=== PATIENT | male | born 1940 | race Caucasian/White ===

== ENCOUNTER 2023-08-12 12:46 | Inpatient (IN) | payer OTHER, BC ==
[2023-08-12 14:35] VITALS: BMI 29.5
[2023-08-12] MEDS ORDERED: BENZONATATE 200 MG CAPSULE PO PRN (15:31)
[2023-08-12] MEDS ORDERED: MAGNESIUM HYDROX 2400MG/30ML ORAL SUSPENSION 30 ML CUP PO PRN (15:31)
[2023-08-12] MEDS ORDERED: MAG HYDROX/AL HYDROX/SIMETH 30 ML UNIT-DOSE CUP PO PRN (15:31)
[2023-08-12] MEDS ORDERED: BISMUTH SUBSALICYLATE 524 MG/30 ML PO PRN (15:31)
[2023-08-12] MEDS ORDERED: ONDANSETRON *ODT* 4 MG TABLET SL PRN (15:31)
[2023-08-12] MEDS ORDERED: ACETAMINOPHEN 325 MG TABLET (FP) PO PRN (15:31)
[2023-08-12] MEDS ORDERED: POLYETHYLENE GLYCOL (HEALTHYLAX) 3350 17 GM PACKET PO PRN (15:31)
[2023-08-12] MEDS ORDERED: BENZOCAINE/MENTHOL (CHLORASEPTIC ) LOZENGE MM PRN (15:31)
[2023-08-12] MEDS ORDERED: guaiFENesin 600 MG TABLET.ER (FP) PO PRN (15:31)
[2023-08-12] MEDS ORDERED: LOPERAMIDE HCL 2 MG CAPSULE PO PRN (15:31)
[2023-08-12] MEDS ORDERED: diazePAM 5 MG TABLET ONE (16:11)
[2023-08-12] MEDS: diazePAM 5 MG TABLET PO SCH ×2 (16:14→22:05)
[2023-08-12] MEDS: FUROSEMIDE 20 MG TABLET (FP) PO SCH (16:14)
[2023-08-12] MEDS ORDERED: LISINOPRIL 5 MG TABLET PO ONE (21:00)
[2023-08-12] MEDS: ATORVASTATIN CA 40 MG TABLET (FP) PO SCH (21:35)
[2023-08-12] MEDS: THIAMINE HCL 100 MG TABLET (FP) PO SCH (21:35)
[2023-08-13] MEDS: diazePAM 5 MG TABLET PO SCH ×4 (05:51→22:02)
[2023-08-13 08:52] LABS: CHLORIDE 106 mmol/L (98-107); POTASSIUM 3.5 mmol/L (3.5-5.1); SODIUM 143 mmol/L (136-145)
[2023-08-13 08:53] LABS: HEMATOCRIT 39.1 % (35.4-49); MCH 30.3 pg (25.7-33.7); MCHC 33.1 g/dl (32.0-35.9); MEAN CELL VOLUME 91.3 fl (80-96); MEAN PLT VOLUME 7.4 fl (7.5-11.1); PLATELET COUNT 215 10^3/uL (134-434); RBC 4.28 M/mm3 (4.00-5.60); RDW 14.5 % (11.9-15.9); WHITE BLOOD COUNT 8.8 K/mm3 (4.0-10.0)
[2023-08-13 08:55] LABS: ALBUMIN 3.3 g/dl (3.4-5.0); BLOOD UREA NITROGEN 14.7 mg/dL (7-18); CALCIUM 8.5 mg/dL (8.5-10.1)
[2023-08-13 08:56] LABS: ANION GAP 6 mmol/L (4-13); CO2 32 mmol/L (21-32); GLUCOSE,RANDOM 112 mg/dL (74-106)
[2023-08-13 08:59] LABS: CREATININE 1.1 mg/dL (0.55-1.3); SGOT/AST 14 U/L (15-37); SGPT/ALT 20 U/L (13-61)
[2023-08-13 09:00] LABS: TOT PROT 5.9 g/dl (6.4-8.2)
[2023-08-13 09:01] LABS: BILIRUBIN,TOTAL 0.6 mg/dL (0.2-1)
[2023-08-13 09:02] LABS: ALK PHOS 70 U/L (45-117)
[2023-08-13] MEDS: PRENATAL VITAMINS W/ FOLIC ACID TABLET (FP) PO SCH (10:17)
[2023-08-13] MEDS: FUROSEMIDE 20 MG TABLET (FP) PO SCH (10:18)
[2023-08-13] MEDS: THIAMINE HCL 100 MG TABLET (FP) PO SCH (22:03)
[2023-08-13] MEDS: ATORVASTATIN CA 40 MG TABLET (FP) PO SCH (22:03)
[2023-08-14] MEDS: diazePAM 5 MG TABLET PO SCH ×2 (05:19→17:48)
[2023-08-14] MEDS: FUROSEMIDE 20 MG TABLET (FP) PO SCH (09:25)
[2023-08-14] MEDS: PRENATAL VITAMINS W/ FOLIC ACID TABLET (FP) PO SCH (09:25)
[2023-08-14] MEDS: diazePAM 5 MG TABLET PO PRN ×2 (09:26→21:12)
[2023-08-14] MEDS: IBUPROFEN 400 MG TABLET (FP) PO PRN (13:55)
[2023-08-14] MEDS: cloNIDine HCL 0.1 MG TABLET PO PRN ×2 (13:56→21:12)
[2023-08-14] MEDS: MELATONIN 5 MG TABLETS PO PRN (21:11)
[2023-08-14] MEDS: THIAMINE HCL 100 MG TABLET (FP) PO SCH (21:12)
[2023-08-14] MEDS: ATORVASTATIN CA 40 MG TABLET (FP) PO SCH (21:12)
[2023-08-15] MEDS: diazePAM 5 MG TABLET PO PRN ×4 (02:43→21:09)
[2023-08-15] MEDS ORDERED: diazePAM 5 MG TABLET PO ONE (06:00)
[2023-08-15] MEDS: FUROSEMIDE 20 MG TABLET (FP) PO SCH (10:01)
[2023-08-15] MEDS: PRENATAL VITAMINS W/ FOLIC ACID TABLET (FP) PO SCH (10:01)
[2023-08-15] MEDS: cloNIDine HCL 0.1 MG TABLET PO PRN ×2 (14:04→21:09)
[2023-08-15] MEDS: MELATONIN 5 MG TABLETS PO PRN (21:08)
[2023-08-15] MEDS: ATORVASTATIN CA 40 MG TABLET (FP) PO SCH (21:08)
[2023-08-15] MEDS: THIAMINE HCL 100 MG TABLET (FP) PO SCH (21:09)
[2023-08-16] MEDS: diazePAM 5 MG TABLET PO PRN (01:29)
[2023-08-16] MEDS: cloNIDine HCL 0.1 MG TABLET PO PRN (09:32)
[2023-08-16] MEDS: PRENATAL VITAMINS W/ FOLIC ACID TABLET (FP) PO SCH (09:32)
[2023-08-16] MEDS: FUROSEMIDE 20 MG TABLET (FP) PO SCH (09:33)
[2023-08-16] MEDS: ATORVASTATIN CA 40 MG TABLET (FP) PO SCH (21:12)
[2023-08-16] MEDS: THIAMINE HCL 100 MG TABLET (FP) PO SCH (21:12)
[2023-08-16] MEDS ORDERED: traZODone HCL 50 MG TABLET (FP) PO ONE (22:00)
[2023-08-17] MEDS: PRENATAL VITAMINS W/ FOLIC ACID TABLET (FP) PO SCH (10:01)
[2023-08-17] MEDS: FUROSEMIDE 20 MG TABLET (FP) PO SCH (10:01)
[2023-08-17] MEDS: CHOLECALCIFEROL (VIT D3) 1,000 UNIT (25 MCG) TABLET PO SCH (10:01)
[2023-08-17] MEDS: traZODone HCL 50 MG TABLET (FP) PO SCH (21:44)
[2023-08-17] MEDS: THIAMINE HCL 100 MG TABLET (FP) PO SCH (21:44)
[2023-08-17] MEDS: ATORVASTATIN CA 40 MG TABLET (FP) PO SCH (21:44)
[2023-08-18] MEDS: FUROSEMIDE 20 MG TABLET (FP) PO SCH (09:05)
[2023-08-18] MEDS: CHOLECALCIFEROL (VIT D3) 1,000 UNIT (25 MCG) TABLET PO SCH (09:05)
[2023-08-18] MEDS: PRENATAL VITAMINS W/ FOLIC ACID TABLET (FP) PO SCH (09:05)
[2023-08-18] MEDS: traZODone HCL 50 MG TABLET (FP) PO SCH (21:50)
[2023-08-18] MEDS: ATORVASTATIN CA 40 MG TABLET (FP) PO SCH (21:50)
[2023-08-18] MEDS: THIAMINE HCL 100 MG TABLET (FP) PO SCH (21:50)
[2023-08-19] MEDS: FUROSEMIDE 20 MG TABLET (FP) PO SCH (10:40)
[2023-08-19] MEDS: CHOLECALCIFEROL (VIT D3) 1,000 UNIT (25 MCG) TABLET PO SCH (10:40)
[2023-08-19] MEDS: PRENATAL VITAMINS W/ FOLIC ACID TABLET (FP) PO SCH (10:40)
[2023-08-19] MEDS: MELATONIN 5 MG TABLETS PO PRN (21:11)
[2023-08-19] MEDS: THIAMINE HCL 100 MG TABLET (FP) PO SCH (21:11)
[2023-08-19] MEDS: traZODone HCL 50 MG TABLET (FP) PO SCH (21:12)
[2023-08-19] MEDS: ATORVASTATIN CA 40 MG TABLET (FP) PO SCH (21:12)
[2023-08-20] MEDS: FUROSEMIDE 20 MG TABLET (FP) PO SCH (09:37)
[2023-08-20] MEDS: CHOLECALCIFEROL (VIT D3) 1,000 UNIT (25 MCG) TABLET PO SCH (09:37)
[2023-08-20] MEDS: PRENATAL VITAMINS W/ FOLIC ACID TABLET (FP) PO SCH (09:38)
[2023-08-20] MEDS: ATORVASTATIN CA 40 MG TABLET (FP) PO SCH (21:13)
[2023-08-20] MEDS: THIAMINE HCL 100 MG TABLET (FP) PO SCH (21:13)
[2023-08-20] MEDS: traZODone HCL 50 MG TABLET (FP) PO SCH (21:13)
[2023-08-21] MEDS: FUROSEMIDE 20 MG TABLET (FP) PO SCH (09:53)
[2023-08-21] MEDS: PRENATAL VITAMINS W/ FOLIC ACID TABLET (FP) PO SCH (09:53)
[2023-08-21] MEDS: CHOLECALCIFEROL (VIT D3) 1,000 UNIT (25 MCG) TABLET PO SCH (09:53)
[2023-08-21] MEDS: MELATONIN 5 MG TABLETS PO PRN (21:22)
[2023-08-21] MEDS: traZODone HCL 50 MG TABLET (FP) PO SCH (21:22)
[2023-08-21] MEDS: ATORVASTATIN CA 40 MG TABLET (FP) PO SCH (21:22)
[2023-08-21] MEDS: THIAMINE HCL 100 MG TABLET (FP) PO SCH (21:23)
[2023-08-22] MEDS: P-EPHED 60MG/TRIPROLIDI 2.5MG TABLET PO PRN ×2 (07:48→21:08)
[2023-08-22] MEDS: CHOLECALCIFEROL (VIT D3) 1,000 UNIT (25 MCG) TABLET PO SCH (09:21)
[2023-08-22] MEDS: PRENATAL VITAMINS W/ FOLIC ACID TABLET (FP) PO SCH (09:21)
[2023-08-22] MEDS: FUROSEMIDE 20 MG TABLET (FP) PO SCH (09:21)
[2023-08-22] MEDS: ATORVASTATIN CA 40 MG TABLET (FP) PO SCH (21:07)
[2023-08-22] MEDS: traZODone HCL 50 MG TABLET (FP) PO SCH (21:07)
[2023-08-22] MEDS: MELATONIN 5 MG TABLETS PO PRN (21:07)
[2023-08-22] MEDS: THIAMINE HCL 100 MG TABLET (FP) PO SCH (21:07)
[2023-08-23] MEDS: P-EPHED 60MG/TRIPROLIDI 2.5MG TABLET PO PRN ×2 (06:14→21:06)
[2023-08-23] MEDS: IBUPROFEN 400 MG TABLET (FP) PO PRN (08:48)
[2023-08-23] MEDS: CHOLECALCIFEROL (VIT D3) 1,000 UNIT (25 MCG) TABLET PO SCH (09:41)
[2023-08-23] MEDS: FUROSEMIDE 20 MG TABLET (FP) PO SCH ×2 (09:41→14:58)
[2023-08-23] MEDS: PRENATAL VITAMINS W/ FOLIC ACID TABLET (FP) PO SCH (09:42)
[2023-08-23] MEDS ORDERED: PATIENT'S OWN MEDICATION (NON-FORMULARY) (Memantine Hcl/Donepezil Hcl [Namzaric 28 Mg-10 M PO SCH (12:45)
[2023-08-23] MEDS ORDERED: LORATADINE 10 MG TABLET PO PRN (14:34)
[2023-08-23] MEDS: MELATONIN 5 MG TABLETS PO PRN (21:05)
[2023-08-23] MEDS: ATORVASTATIN CA 40 MG TABLET (FP) PO SCH (21:05)
[2023-08-23] MEDS: traZODone HCL 50 MG TABLET (FP) PO SCH (21:05)
[2023-08-23] MEDS: THIAMINE HCL 100 MG TABLET (FP) PO SCH (21:05)
[2023-08-24] MEDS: P-EPHED 60MG/TRIPROLIDI 2.5MG TABLET PO PRN (08:42)
[2023-08-24] MEDS: FUROSEMIDE 20 MG TABLET (FP) PO SCH (09:42)
[2023-08-24] MEDS: PRENATAL VITAMINS W/ FOLIC ACID TABLET (FP) PO SCH (09:43)
[2023-08-24] MEDS: CHOLECALCIFEROL (VIT D3) 1,000 UNIT (25 MCG) TABLET PO SCH (09:43)
[2023-08-24] MEDS ORDERED: PATIENT'S OWN MEDICATION (NON-FORMULARY) (Memantine Hcl/Donepezil Hcl [Namzaric 28 Mg-10 M PO SCH (10:00)
[2023-08-24] MEDS: THIAMINE HCL 100 MG TABLET (FP) PO SCH (21:23)
[2023-08-24] MEDS: traZODone HCL 50 MG TABLET (FP) PO SCH (21:23)
[2023-08-24] MEDS: ATORVASTATIN CA 40 MG TABLET (FP) PO SCH (21:23)
[2023-08-24] MEDS: MELATONIN 5 MG TABLETS PO PRN (21:24)
[2023-08-25] MEDS: P-EPHED 60MG/TRIPROLIDI 2.5MG TABLET PO PRN (08:23)
[2023-08-25] MEDS: FUROSEMIDE 20 MG TABLET (FP) PO SCH (09:57)
[2023-08-25] MEDS: CHOLECALCIFEROL (VIT D3) 1,000 UNIT (25 MCG) TABLET PO SCH (09:57)
[2023-08-25] MEDS: PRENATAL VITAMINS W/ FOLIC ACID TABLET (FP) PO SCH (09:58)
[2023-08-25] MEDS: DESVENLAFAXINE SUCCINATE 25 MG TAB.ER.24H PO SCH (14:47)
[2023-08-25] MEDS: MELATONIN 5 MG TABLETS PO PRN (21:05)
[2023-08-25] MEDS: THIAMINE HCL 100 MG TABLET (FP) PO SCH (21:05)
[2023-08-25] MEDS: traZODone HCL 50 MG TABLET (FP) PO SCH (21:06)
[2023-08-25] MEDS: ATORVASTATIN CA 40 MG TABLET (FP) PO SCH (21:06)
[2023-08-25] MEDS: HYDROCORTISONE 1% TOPICAL CREAM 30 GM TUBE TP PRN (21:55)
[2023-08-26] MEDS: CHOLECALCIFEROL (VIT D3) 1,000 UNIT (25 MCG) TABLET PO SCH (09:12)
[2023-08-26] MEDS: DESVENLAFAXINE SUCCINATE 25 MG TAB.ER.24H PO SCH (09:12)
[2023-08-26] MEDS: PRENATAL VITAMINS W/ FOLIC ACID TABLET (FP) PO SCH (09:12)
[2023-08-26] MEDS: FUROSEMIDE 20 MG TABLET (FP) PO SCH (09:47)
[2023-08-26] MEDS: THIAMINE HCL 100 MG TABLET (FP) PO SCH (21:15)
[2023-08-26] MEDS: ATORVASTATIN CA 40 MG TABLET (FP) PO SCH (21:15)
[2023-08-26] MEDS: traZODone HCL 50 MG TABLET (FP) PO SCH (21:15)
[2023-08-26] MEDS: MELATONIN 5 MG TABLETS PO PRN (21:15)
[2023-08-27] MEDS: FUROSEMIDE 20 MG TABLET (FP) PO SCH (10:00)
[2023-08-27] MEDS: DESVENLAFAXINE SUCCINATE 25 MG TAB.ER.24H PO SCH (10:00)
[2023-08-27] MEDS: CHOLECALCIFEROL (VIT D3) 1,000 UNIT (25 MCG) TABLET PO SCH (10:00)
[2023-08-27] MEDS: PRENATAL VITAMINS W/ FOLIC ACID TABLET (FP) PO SCH (10:00)
[2023-08-27] MEDS: traZODone HCL 50 MG TABLET (FP) PO SCH (21:21)
[2023-08-27] MEDS: MELATONIN 5 MG TABLETS PO PRN (21:21)
[2023-08-27] MEDS: ATORVASTATIN CA 40 MG TABLET (FP) PO SCH (21:21)
[2023-08-27] MEDS: THIAMINE HCL 100 MG TABLET (FP) PO SCH (21:21)
[2023-08-28] MEDS: DESVENLAFAXINE SUCCINATE 25 MG TAB.ER.24H PO SCH (09:34)
[2023-08-28] MEDS: PRENATAL VITAMINS W/ FOLIC ACID TABLET (FP) PO SCH (09:34)
[2023-08-28] MEDS: CHOLECALCIFEROL (VIT D3) 1,000 UNIT (25 MCG) TABLET PO SCH (09:34)
[2023-08-28] MEDS: FUROSEMIDE 20 MG TABLET (FP) PO SCH (09:35)
[2023-08-28] MEDS: THIAMINE HCL 100 MG TABLET (FP) PO SCH (21:14)
[2023-08-28] MEDS: ATORVASTATIN CA 40 MG TABLET (FP) PO SCH (21:14)
[2023-08-28] MEDS: traZODone HCL 50 MG TABLET (FP) PO SCH (21:14)
[2023-08-29] MEDS: FUROSEMIDE 20 MG TABLET (FP) PO SCH (09:43)
[2023-08-29] MEDS: DESVENLAFAXINE SUCCINATE 25 MG TAB.ER.24H PO SCH (09:43)
[2023-08-29] MEDS: PRENATAL VITAMINS W/ FOLIC ACID TABLET (FP) PO SCH (09:43)
[2023-08-29] MEDS: CHOLECALCIFEROL (VIT D3) 1,000 UNIT (25 MCG) TABLET PO SCH (09:43)
[2023-08-29] MEDS: ATORVASTATIN CA 40 MG TABLET (FP) PO SCH (21:07)
[2023-08-29] MEDS: THIAMINE HCL 100 MG TABLET (FP) PO SCH (21:07)
[2023-08-29] MEDS: traZODone HCL 50 MG TABLET (FP) PO SCH (21:07)
[2023-08-30] MEDS: P-EPHED 60MG/TRIPROLIDI 2.5MG TABLET PO PRN (06:23)
[2023-08-30 07:36] VITALS: RESP 18; TEMP 97.7
[2023-08-30] MEDS: PRENATAL VITAMINS W/ FOLIC ACID TABLET (FP) PO SCH (09:10)
[2023-08-30] MEDS: CHOLECALCIFEROL (VIT D3) 1,000 UNIT (25 MCG) TABLET PO SCH (09:10)
[2023-08-30] MEDS: HYDROCORTISONE 1% TOPICAL CREAM 30 GM TUBE TP PRN (09:10)
[2023-08-30] MEDS: FUROSEMIDE 20 MG TABLET (FP) PO SCH (09:11)
[2023-08-30] MEDS: DESVENLAFAXINE SUCCINATE 25 MG TAB.ER.24H PO SCH (09:11)
[2023-08-30 09:22] VITALS: BP 158/87; PULSE 76
== END 2023-08-30 09:55 | disposition home or self-care (01) | DRG 895 ==
LOC: YASAS 12:46 → Y3N 16:38 → Y3E 08-16 13:46
PROVIDERS: ADMIT Allergy & Immunology; ATTEND Psychiatry & Neurology Pain Medicine
PROC: HZ42ZZZ Group Counseling for Substance Abuse Treatment, Cognitive-Behavioral (ICD-10-PCS; principal; 2023-08-12)
DX: F10.20 Alcohol dependence, uncomplicated (principal); F13.20 Sedative, hypnotic or anxiolytic dependence, uncomplicated; F41.9 Anxiety disorder, unspecified; F03.90 Unspecified dementia, unspecified severity, without behavioral disturbance, psychotic disturbance, mood disturbance, and anxiety; G47.00 Insomnia, unspecified; I10 Essential (primary) hypertension; R26.89 Other abnormalities of gait and mobility; Z88.0 Allergy status to penicillin
CPT/HCPCS: 36415; 80053; 80307; 85027; 86780; 87635; 87811